=== PATIENT | male | born 1980 | race African-American/Black ===

== ENCOUNTER 2016-05-03 15:17 | Emergency (ER) | payer SELFPAY ==
[~2016-05-03] VITALS: Ht 182.9 cm; Wt 100.0 kg
[~2016-05-03 15:17] MED LIST: AMOX500T PO; IBUP600T26 PO; PENI500T PO
[2016-05-03 15:18] VITALS: BP 129/71; PULSE 89; RESP 18; TEMP 98.1; O2SAT 98
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
[2016-05-03 16:21] VITALS: BP 122/62; PULSE 82; RESP 18; O2SAT 99
[2016-05-03] MEDS ORDERED: SODIUM CHLORIDE 0.9% FLUSH 10 ML FLUSH IVF PRN (16:30)
[2016-05-03 16:41] LABS: AUTOMATED NEUTROPHIL # 7.1 TH/MM3 (1.8-7.7); BASOPHIL % 0.4 % (0.0-2.0); EOSINOPHIL % 0.4 % (0.0-4.0); HEMATOCRIT 39.3 % (39.0-51.0); HEMO FLAGS DIFF FINAL; LYMPH % 15.7 % (9.0-44.0); LYMPHOCYTE # 1.6 TH/MM3 (1.0-4.8); MEAN CELL VOLUME 83.4 FL (80.0-100.0); MEAN CORPUSCULAR HEMOGLOBIN 27.8 PG (27.0-34.0); MEAN CORPUSCULAR HGB CONC 33.3 % (32.0-36.0); MONO % 13.5 % (0.0-8.0); PLATELET COUNT 201 TH/MM3 (150-450); RED BLOOD COUNT 4.72 MIL/MM3 (4.50-5.90); RED CELL DISTRIBUTION WIDTH 15.1 % (11.6-17.2); WHITE BLOOD COUNT 10.1 TH/MM3 (4.0-11.0)
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
[2016-05-03 17:02] LABS: ANION GAP 4 MEQ/L (5-15); BICARBONATE 31.4 MEQ/L (21.0-32.0); BLOOD UREA NITROGEN 17 MG/DL (7-18); CHLORIDE 104 MEQ/L (98-107); GLOMERULAR FILTRATION RATE 76 ML/MIN (>89); POTASSIUM 4.2 MEQ/L (3.5-5.1); SODIUM (NA) 139 MEQ/L (136-145)
[2016-05-03 17:05] LABS: CREATINE KINASE 1858 U/L (39-308)
[2016-05-03 17:10] LABS: APTT (PATIENT) 30.6 SEC (24.3-30.1); INTERNATIONAL NORMALIZED RATIO 1.1 RATIO; PROTHROMBIN TIME - PATIENT 12.4 SEC (9.8-11.6)
[2016-05-03 17:18] LABS: CKMB 0.9 NG/ML (0.5-3.6)
[2016-05-03] MEDS ORDERED: SODIUM CHLOR 0.9% 1000 ML INJ 1,000 ML IV SCH ×3 (17:35→19:00)
[2016-05-03 17:56] VITALS: BP 141/81; PULSE 74; RESP 20; TEMP 98; O2SAT 99
[2016-05-03] MEDS ORDERED: IOHEXOL 350 MG/ML 10 ML VIAL (for RAD DIAG) IV ONE (19:01)
[2016-05-03 19:30] VITALS: BP 145/78; PULSE 89; RESP 16; O2SAT 99
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
[2016-05-03] MEDS ORDERED: NAPR500T PO (20:46)
[2016-05-03] MEDS ORDERED: ROBA500T PO (20:46)
[2016-05-03 20:49] LABS: CKMB 0.7 NG/ML (0.5-3.6)
[2016-05-03 21:11] VITALS: BP 98/57; PULSE 124; RESP 26; O2SAT 99
--- NOTE | 2016-05-04 14:47 | EKG ---
Date Performed: 05/03/2016 Time Performed: 16:14:39 PTAGE: 36 years EKG: Sinus rhythm NORMAL ECG NO PREVIOUS TRACING DOCTOR: Stuart Anthony Interpretating Date/Time 05/04/2016 14:41:52
== END 2016-05-03 21:30 | disposition home or self-care (01) ==
LOC: NEPC 15:17
DX: Z72.0 Tobacco use (principal); R07.89 Other chest pain; J98.4 Other disorders of lung; R74.8 Abnormal levels of other serum enzymes
CPT/HCPCS: 71020; 71275; 80048; 82550; 82552; 84484; 85025; 85379; 85610; 85730; 93005; 96360; 96361; 99284; J7030; Q9967

== ENCOUNTER 2017-01-18 08:26 | Emergency (ER) | payer SELFPAY ==
[~2017-01-18 08:26] MED LIST changes: -AMOX500T PO; -IBUP600T26 PO; -PENI500T PO; +ROBA500T PO
[2017-01-18 08:28] VITALS: BP 125/57; PULSE 75; RESP 16; TEMP 97.8; O2SAT 99
[2017-01-18] MEDS ORDERED: AZIT500T2 PO (08:53)
--- NOTE | 2017-01-18 08:53 | PD ---
HPI Chief Complaint: Cold / Flu Symptoms Time Seen by Provider: 08:45 Travel History International Travel<30 days: No Contact w/Intl Traveler<30days: No Traveled to known affect area: No History of Present Illness HPI 36-year-old male presents to emergency Department with complaint of sore throat 3 days. Subjective fever; has not taken his temperature to report MAXIMUM TEMPERATURE. Orts chills. Reports nasal congestion. Denies cough, ear pain. Denies lip and throat, difficulty swallowing, unusual drooling. Reports painful swallowing. Says he vomited twice yesterday. Denies headache or abdominal pain. Denies diarrhea. Has taken ibuprofen for symptom management. Symptoms are mild in severity. Aggravated with swallowing. Allergies to penicillins. Dr. Burrows is primary care provider. Denies significant past medical history. No other modifying factors or associated signs and symptoms. PFSH Past Medical History Diabetes: No Diminished Hearing: No Genitourinary: Yes (UTI HX) Immune Disorder: No Social History Alcohol Use: Yes (OCASSIONALLY) Tobacco Use: Yes (light smoker) Substance Use: No Allergies-Medications (Allergen,Severity, Reaction): Coded Allergies: Penicillins (Verified Allergy, Severe, 01/18/17) Reported Meds & Prescriptions Reported Meds & Active Scripts Active Azithromycin 500 Mg Tab 500 Mg PO DAILY 5 Days Robaxin (Methocarbamol) 500 Mg Tab 500 Mg PO TID Review of Systems Except as stated in HPI: all other systems reviewed are Neg Physical Exam Narrative GENERAL: Well-nourished, well-developed black male patient, in no acute distress ; afebrile, nontoxic-appearing SKIN: Warm and dry. No rash. HEAD: Atraumatic. Normocephalic. EYES: Pupils equal and round at 3 mm with brisk reaction. No scleral icterus. No injection or drainage. PERRLA. ENT: Mucosa pink and dry. Pharynx with 2+ tonsils; with erythema, exudate, and edema. No Uvular edema. No uvular, palatal, or tonsillar deviation. Airway patent. Voice is hoarse. EARS: Bilateral pinnae and external canals appear within normal limits. Bilateral tympanic membranes without erythema, dullness or perforation.. NECK: Trachea midline. Anterior cervical lymphadenopathy and tenderness. CARDIOVASCULAR: Regular rate and rhythm. No murmur appreciated. RESPIRATORY: No accessory muscle use. Clear to auscultation. Breath sounds equal bilaterally. GASTROINTESTINAL: Abdomen soft, non-tender, nondistended. Hepatic and splenic margins not palpable. Bowel sounds are active 4 quadrants. MUSCULOSKELETAL: No obvious deformities. No clubbing. No cyanosis. No edema. NEUROLOGICAL: Awake and alert. Oriented 3. No obvious cranial nerve deficits. Motor grossly within normal limits. Normal speech. Moves all extremities. PSYCHIATRIC: Appropriate mood and affect; insight and judgment normal. Data Data Last Documented VS Vital Signs Date Time Temp Pulse Resp B/P (MAP) Pulse Ox O2 Delivery O2 Flow Rate FiO2 01/18/17 08:34 18 Room Air 01/18/17 08:28 97.8 75 125/57 (79) 99 Orders Orders Ed Discharge Order (01/18/17 08:53) Group A Rapid Strep Screen (01/18/17 08:53) Sodium Chloride 0.9% Flush (Ns Flush) (01/18/17 09:00) MDM Medical Decision Making Medical Screen Exam Complete: Yes Emergency Medical Condition: Yes Medical Record Reviewed: Yes Differential Diagnosis Exudative pharyngitis, strep pharyngitis, viral pharyngitis, less likely peritonsillar abscess Narrative Course 36-year-old male physical exam consistent with exudative pharyngitis. She is afebrile and nontoxic-appearing. He reports subjective fever and chills at home. Vomited twice yesterday. Denies abdominal pain. Rapid strep pending. Azithromycin prescribed for home. Instructed patient to follow up with primary care provider. Patient verbalizes understanding and agreement with treatment plan. Patient is medically cleared and stable for discharge. Discussed reasons to return to the emergency department. Patient agrees with treatment plan. The patients vital signs are stable and the patient is stable for outpatient follow-up and treatment. Patient discharged home, stable and in no acute distress. Diagnosis Primary Impression: Exudative pharyngitis Referrals: [facility] Primary Care Physician Patient Instructions: General Instructions, Pharyngitis (ED) Departure Forms: Tests/Procedures, Work Release Enter return to work date: Jan 19, 2017 Additional Instructions: Take Antibiotics as prescribed and complete full course of antibiotics Throw away and change your toothbrush 24 hours after starting antibiotics Get plenty of sleep/rest Rest your voice Drink plenty of fluids to prevent dehydration Use warm saltwater gargles to soothe throat pain Use an air humidifier/turn off ceiling fans Use throat lozenges as needed for sore throat Use ibuprofen or acetaminophen as needed and as directed to relieve pain and fever Follow-up with your primary care provider within 2-4 days Return immediately to the emergency department with worsening of symptoms Med/Other Pt SpecificInfo: Prescription(s) given Scripts Azithromycin (Azithromycin) 500 Mg Tab 500 MG PO DAILY for Infection for 5 Days, #5 TAB 0 Refills Prov: Cynthia Mckeon 01/18/17 Disposition: 01 DISCHARGE HOME Condition: Stable Cynthia Mckeon Jan 18, 2017 08:53
[2017-01-18] MEDS ORDERED: SODIUM CHLORIDE 0.9% FLUSH 10 ML FLUSH IVF PRN (09:00)
== END 2017-01-18 09:08 | disposition home or self-care (01) ==
LOC: NEPD 08:26
DX: J02.0 Streptococcal pharyngitis (principal); B95.0 Streptococcus, group A, as the cause of diseases classified elsewhere; Z72.0 Tobacco use; Z88.0 Allergy status to penicillin
CPT/HCPCS: 87880; 99283